=== PATIENT | female | born 1995 | race Caucasian/White ===

== ENCOUNTER 2016-08-20 00:03 | Emergency (ER) | payer OTHER ==
[~2016-08-20] VITALS: Ht 160 cm; Wt 55.7 kg
[2016-08-20] MEDS ORDERED: ZOLOFT100 MG PO (01:25)
[2016-08-20] MEDS ORDERED: NEXPLANON68 MG SC (01:25)
[2016-08-20] MEDS ORDERED: PROMETHAZINE HC25 M1 PO (02:39)
[2016-08-20 03:32] VITALS: BP 122/68
== END 2016-08-20 03:43 | disposition home or self-care (01) ==
LOC: EME 00:03
DX: G43.909 Migraine, unspecified, not intractable, without status migrainosus (principal)
CPT/HCPCS: 99281; 99285; J1100; J1885; J2765; J7030

== ENCOUNTER 2016-10-14 03:51 | Emergency (ER) | payer OTHER ==
[~2016-10-14] VITALS: Ht 160 cm; Wt 56.8 kg
[~2016-10-14 03:51] MED LIST: NEXPLANON68 MG SC; PROMETHAZINE HC25 M1 PO; ZOLOFT100 MG PO
[2016-10-14 04:36] LABS: HEMATOCRIT 44.2 % (36.0-46.0); MCH 29.7 PG (29.0-34.0); MCHC 33.5 G/DL (30.0-36.0); MCV 88.8 FL (83-99); MEAN PLAT.VOLUME 9.2 uM^3 (9.5-12.4); PLATELET COUNT 269 K/uL (156-360); RBC DIS.WIDTH-CV 12.7 % (11.8-14.6); RBC DIS.WIDTH-SD 41.4 % (39-53); RED BLOOD COUNT 4.98 M/uL (3.80-5.20); WHITE BLOOD COUNT 8.1 K/uL (4.1-10.2)
[2016-10-14 04:47] LABS: CHLORIDE 108 mEq/L (99-109); POTASSIUM 3.9 mEq/L (3.7-5.4); SODIUM 142 mEq/L (136-147)
[2016-10-14 04:49] LABS: GLUCOSE 102 mg/dL (70-99)
[2016-10-14 04:50] LABS: ANION GAP 10 MEQ/L (2-14)
[2016-10-14 04:52] LABS: SERUM ETHYL ALCOHOL 108 mg/dL
[2016-10-14 04:53] LABS: GFR ESTIMATE (CALCULATED) > 59 mL/min/
[2016-10-14 04:54] LABS: UREA NITROGEN (BUN) 7 mg/dL (9-23)
[2016-10-14 05:03] LABS: QUANTITATIVE HCG < 4.0 MIU/ML
[2016-10-14 06:01] LABS: AMPHETAMINE NEGATIVE (500 ng/mL); BARBITURATES NEGATIVE (200 ng/mL); BENZODIAZEPINES NEGATIVE (150 ng/mL); COCAINE NEGATIVE (150 ng/mL); INTERNAL CONTROLS VALID? YES; METHADONE NEGATIVE (200 ng/mL); METHAMPHETAMINE NEGATIVE (500 ng/mL); OPIATES (MORPHINE) NEGATIVE (100 ng/mL); OXYCODONE NEGATIVE (100 ng/mL); PHENCYCLIDINE NEGATIVE (25 ng/mL); PROPOXYPHENE NEGATIVE (300 ng/mL); THC CANNABINOIDS NEGATIVE (50 ng/mL); TRICYCLIC ANTIDEPRESSANTS NEGATIVE (300 ng/mL)
[2016-10-14 17:33] VITALS: BP 95/69
== END 2016-10-14 17:33 ==
LOC: EME 03:51
PROVIDERS: Emergency Medicine
DX: T14.91 Suicide attempt (principal); F32.9 Major depressive disorder, single episode, unspecified; F43.10 Post-traumatic stress disorder, unspecified; Z04.6 Encounter for general psychiatric examination, requested by authority
CPT/HCPCS: 80048; 84702; 85027; 90837; 99281; 99285; G0480